=== PATIENT | female | born 1940 | race Caucasian/White ===

== ENCOUNTER → 2018-03-26 14:10 | Outpatient (CLI) | payer MEDICARE, OTHER, SELFPAY ==
[2018-03-26 14:40] LABS: Add Manual Diff / Slide Review NO; Basophils Percent Auto 0.6 % (0-2); Eosinophils Percent Auto 4.7 % (2-4); Hemoglobin 13.6 g/dL (12.0-16.0); Lymphocytes Percent Auto 27.9 % (25-40); Mean Corpuscular HGB Conc 33.1 % (30-36); Mean Corpuscular Hemoglobin 29.3 PG (26-34); Mean Corpuscular Volume 88.4 fL (80-100); Monocytes Percent Auto 7.2 % (3-14); Neutrophils Absolute Auto 4600 /uL (3000-5900); Neutrophils Percent Auto 59.6 % (50-75); Platelet Count 237 X10^3/uL (150-400); Red Blood Cell Count 4.64 X10^6/uL (4.0-5.2); Red Cell Distribution Width 16.3 % (11.6-14.8); White Blood Cell Count 7.7 X10^3/uL (4.5-11.0)
[2018-03-26 15:13] LABS: Prothrombin Time 10.6 SECONDS (10.1-12.7)
[2018-03-26 15:15] LABS: PTT Partial Thromboplastin Tim 27 SECONDS (26.4-36.2)
[2018-03-26 15:22] LABS: Blood Urea Nitrogen 22 mg/dL (7-17); Calcium 9.8 mg/dL (8.4-10.2); Carbon Dioxide 26 mmol/L (22-32); Chloride 106 mmol/L (98-107); Estimated Glomerular Filt Rate 53.9 mL/min (>60); Glucose 105 mg/dL (80-110); HEMOLYSIS < 15 (0-50); Potassium 4.8 mmol/L (3.4-5.1); Sodium 145 mmol/L (137-145)
== END ==
PROVIDERS: PCP Nurse Practitioner Primary Care; Visit Provider Physician Assistant
DX: M48.061 Spinal stenosis, lumbar region without neurogenic claudication (principal)
CPT/HCPCS: 36415; 80048; 85025; 85610; 85730

== ENCOUNTER 2018-04-01 10:55 | Inpatient (IN) | payer MEDICARE, OTHER, SELFPAY ==
[2018-03-29 12:46] VITALS: BMI 39.5
[2018-04-01] VITALS (16 sets, daily range): BP systolic 108–190; BP diastolic 55–91; PULSE 52–70; RESP 12–18; TEMP 35.6–36.8; O2SAT 93–98; BMI 39.5
--- NOTE | 2018-04-01 | DI.RAD.S_ITS ---
PROCEDURE: XR LUMBAR SPINE 2-3V INDICATIONS: L5-S1 TLIF TECHNIQUE: 2 views of the lumbar spine were acquired. COMPARISON: [facility] Outside Film, RG, SPINE LUMB 2 OR 3VW, 08/17/2017, 14:13. FINDINGS: Bones: AP and lateral images were obtained intraoperatively documenting placement of a disc spacer at L5-S1 with posterior fixation including trans-peduncular screws and vertical connecting rods bilaterally at L5-S1 Soft tissues: No suspicious soft tissue calcifications. IMPRESSION: Intraoperative documentation of posterior discectomy and fixation L5-S1 Dictated by: James Gillespie M.D. on 04/01/2018 at 16:00 Approved by: James Gillespie M.D. on 04/01/2018 at 16:04
[2018-04-01] MEDS: SCOPOLAMINE 1 PATCH TOP (11:50)
[2018-04-01] MEDS: LACTATED RINGERS 1,000 ML 42 ML IV ×2 (11:50→15:02)
--- NOTE | 2018-04-01 13:25 | PM.PREOP ---
Pre-operative Note Interval Note Pre-op Check: Yes History & Physical Reviewed by Physician, Yes Exam Performed and Yes History & Physical exam performed today by Physician Changes: No
[2018-04-01] MEDS: CEFAZOLIN VIAL 3 GM in SODIUM CHLORIDE 0.9% 100 ML 200 ML IV (13:38)
--- NOTE | 2018-04-01 14:31 | SUR.OPER ---
Prone on spine table, head in foam head support, padded chest and pelvic supports, gel pad at knees, lower legs supported by pillows; nipples, genitalia and toes free of pressure, arms secured on foam padded arm boards at <90 degrees abduction. Tape over blanket at thigh secured to table.
[2018-04-01] MEDS: BUPIVACAINE 0.25% W/ EPI VIAL 50 ML INJ (14:43)
[2018-04-01] MEDS: BUPIVACAINE LIPOSOME 266 MG/20 ML VIAL INJ (14:43)
--- NOTE | 2018-04-01 16:08 | PM.OP.1 ---
Operative Date/Time/Diagnoses Date of procedure: 04/01/18 Time of procedure: 13:08 Pre-op diagnosis: 1. L4-5, L5-S1 spinal stenosis 2. L4-5, L5-S1 spondylosis with radiculopathy Post-op diagnosis: same Procedure & Clinicians Procedure: 1. L5-S1 Postero-lateral and posterior interbody fusion 2. L5-S1 interbody cage placement. 3. L5-S1 decompressive laminectomy with bilateral facetecomies 4. L5-S1 Posterior non-segmental instrumentation 5. L4-5 left hemilaminectomy 6. Alpha of bone marrow from iliac crest 7. Utilization of microsurgical technique and operating microscope Same procedure as scheduled: Yes Indications: Patient has been having chronic back pain and worsening lumbar radiculopathy. Patient failed multiple conservative management with worsening pain weakness and numbness in her lower extremity. Patient has been having difficulty performing activity of daily living. After discussing risks benefits of treatment options, patient elected proceed with surgery. Surgeon: Vandana Nava Gas Fitter Apprentice: Emily Staley'Brien Click Yes if Unassisted: No Anesthesia Type: General Operative Notes Closure Type: primary Specimen(s): none sent Implants & Drains: Globus revolve screws, Rise cages Applied: catheter Estimated Blood Loss (mL): 50 Blood products transfused: none Procedure in detail: Patient was seen in the preoperative area. Risks and benefits of the surgery was discussed with the patient. Informed consent was obtained from the patient and placed in the chart. Surgical site was marked. Patient was taken to the operative room. General anesthesia was administered. Prophylactic antibiotic was given to the patient less than 30 min before the incision was made. Patient was placed into a prone position on the Deion table. Patient's back was then prepped and draped in the sterile fashion. Time-out was performed at this time. Using AP and lateral C-arm imaging the interval between L4-5 L5-S1 was identified and marked on patient's back. A 2 inch incision 2 in from midline was made on the right side first. The fascia was incised in line with skin incision. Globus MARS retractors was placed inside the incision and docked onto the L5 lamina. Using microsurgical technique and operating microscope, a L5 laminectomy and L5-S1 facetectomy was performed using a Kerrison rongeur. The disc space at L5-S1 was identified. And a total diskectomy was performed at L5-S1 level. The endplates were decorticated using a rasp and shaver. The total diskectomy and decortication was performed at L5-S1 level in order to to accomplish a L5-S1 fusion. The local bone from the laminectomy and facetectomy was saved for local bone grafting. After the total diskectomy and decortication was completed, Globus viacell bone graft material was combined with local bone that was harvested earlier. At this time, a separate skin is incision was made over the iliac crest. A Jamshidi needle was inserted into the iliac crest through a separate skin incision. 5 cc of bone marrow aspiration was obtained through the separate skin incision using a Jamshidi needle from the iliac crest. The bone marrow aspiration was combined with local bone and the via cell bone grafting material. The bone grafting material was placed into the L5-S1 interbody space along with a expandable cage. The cage was expanded to its maximum height using the torque limiting screwdriver. At this time the MARS retractor was redirected over the L4 lamina. Using microsurgical technique and operating microscope, a L4 heminectomy was performed using the Kerrison rongeur. The ligamentum flavum was also resected at the side of the hemilaminectomy for further decompression of the epidural space. At this time a mirror image incision was made on the right side. The fascia was incised in line with the skin incision. Globus MARS retractor was inserted and docked onto the L5-S1 posterolateral gutter. Using the power drill, posterior-lateral decortication was performed at L5-S1 level until bleeding cortical bone was identified. The remaining bone grafting material was placed into the L5-S1 posterior lateral gutter he order to accomplish posterolateral fusion at the L5-S1 level. Using the double C-arm technique, pedicle screws were placed into the L5 and S1 pedicles bilaterally. This was done by placing the Jamshidi needle into the pedicles, then placing the guidewires over the Jamshidi needle, and finally placing the cannulated screws over the guidewires bilaterally. After the pedicle screws were placed, 2 titanium rods was locked into the heads of the pedicle screws using locking caps and torque limiting screwdriver. After all the hardware was placed, and confirmed with AP and lateral C-arm imaging, the wound was then irrigated with sterile normal saline and packed with Ray-Faheem gauze for 3 min to accomplish hemostasis. After the gauze was removed the deep fascia was closed with #1 Vicryl suture. The subcutaneous layer was closed with 2-0 Vicryl. The skin was closed with skin louis. Patient tolerated the procedure well. There were no complications. Complications: none Condition: stable Disposition: PACU Plan for aftercare: Admit to inpatient hospital
--- NOTE | 2018-04-01 16:13 | P.OP_ITS ---
Operative Date/Time/Diagnoses Date of procedure: 04/01/18 Time of procedure: 13:08 Pre-op diagnosis: 1. L4-5, L5-S1 spinal stenosis 2. L4-5, L5-S1 spondylosis with radiculopathy Post-op diagnosis: same Procedure & Clinicians Procedure: 1. L5-S1 Postero-lateral and posterior interbody fusion 2. L5-S1 interbody cage placement. 3. L5-S1 decompressive laminectomy with bilateral facetecomies 4. L5-S1 Posterior non-segmental instrumentation 5. L4-5 left hemilaminectomy 6. [place] of bone marrow from iliac crest 7. Utilization of microsurgical technique and operating microscope Same procedure as scheduled: Yes Indications: Patient has been having chronic back pain and worsening lumbar radiculopathy. Patient failed multiple conservative management with worsening pain weakness and numbness in her lower extremity. Patient has been having difficulty performing activity of daily living. After discussing risks benefits of treatment options, patient elected proceed with surgery. Surgeon: Vandana Nava Load Checker: Emily Staley'Brien Click Yes if Unassisted: No Anesthesia Type: General Operative Notes Closure Type: primary Specimen(s): none sent Implants & Drains: Globus revolve screws, Rise cages Applied: catheter Estimated Blood Loss (mL): 50 Blood products transfused: none Procedure in detail: Patient was seen in the preoperative area. Risks and benefits of the surgery was discussed with the patient. Informed consent was obtained from the patient and placed in the chart. Surgical site was marked. Patient was taken to the operative room. General anesthesia was administered. Prophylactic antibiotic was given to the patient less than 30 min before the incision was made. Patient was placed into a prone position on the Deion table. Patient's back was then prepped and draped in the sterile fashion. Time- out was performed at this time. Using AP and lateral C-arm imaging the interval between L4-5 L5-S1 was identified and marked on patient's back. A 2 inch incision 2 in from midline was made on the right side first. The fascia was incised in line with skin incision. Globus MARS retractors was placed inside the incision and docked onto the L5 lamina. Using microsurgical technique and operating microscope, a L5 laminectomy and L5-S1 facetectomy was performed using a Kerrison rongeur. The disc space at L5-S1 was identified. And a total diskectomy was performed at L5- S1 level. The endplates were decorticated using a rasp and shaver. The total diskectomy and decortication was performed at L5-S1 level in order to to accomplish a L5-S1 fusion. The local bone from the laminectomy and facetectomy was saved for local bone grafting. After the total diskectomy and decortication was completed, Globus viacell bone graft material was combined with local bone that was harvested earlier. At this time, a separate skin is incision was made over the iliac crest. A Jamshidi needle was inserted into the iliac crest through a separate skin incision. 5 cc of bone marrow aspiration was obtained through the separate skin incision using a Jamshidi needle from the iliac crest. The bone marrow aspiration was combined with local bone and the via cell bone grafting material. The bone grafting material was placed into the L5-S1 interbody space along with a expandable cage. The cage was expanded to its maximum height using the torque limiting screwdriver. At this time the MARS retractor was redirected over the L4 lamina. Using microsurgical technique and operating microscope, a L4 heminectomy was performed using the Kerrison rongeur. The ligamentum flavum was also resected at the side of the hemilaminectomy for further decompression of the epidural space. At this time a mirror image incision was made on the right side. The fascia was incised in line with the skin incision. Globus MARS retractor was inserted and docked onto the L5-S1 posterolateral gutter. Using the power drill, posterior- lateral decortication was performed at L5-S1 level until bleeding cortical bone was identified. The remaining bone grafting material was placed into the L5-S1 posterior lateral gutter he order to accomplish posterolateral fusion at the L5- S1 level. Using the double C-arm technique, pedicle screws were placed into the L5 and S1 pedicles bilaterally. This was done by placing the Jamshidi needle into the pedicles, then placing the guidewires over the Jamshidi needle, and finally placing the cannulated screws over the guidewires bilaterally. After the pedicle screws were placed, 2 titanium rods was locked into the heads of the pedicle screws using locking caps and torque limiting screwdriver. After all the hardware was placed, and confirmed with AP and lateral C-arm imaging, the wound was then irrigated with sterile normal saline and packed with Ray-Faheem gauze for 3 min to accomplish hemostasis. After the gauze was removed the deep fascia was closed with #1 Vicryl suture. The subcutaneous layer was closed with 2-0 Vicryl. The skin was closed with skin louis. Patient tolerated the procedure well. There were no complications. Complications: none Condition: stable Disposition: PACU Plan for aftercare: Admit to inpatient hospital
[2018-04-01] MEDS: fentaNYL 100 MCG/2 ML INJ 50 MCG IV (16:47)
--- NOTE | 2018-04-01 17:51 | PC.NURSE ---
Addendum entered by Christa Butler R.N. 04/01/18 22:54: Patient sleeping between care, HR between 70-78. Asymptomatic, no SOB, dizziness, or chest pain. CMS to upper and lower extremities WNL. Calls appropriately for staff assistance. Original Note: Addendum entered by Christa Butler R.N. 04/01/18 19:43: Dr. Lin at bedside assessing patient. Will continue to monitor closely. Original Note: Addendum entered by Christa Butler R.N. 04/01/18 19:24: Afib on Telemetry monitoring. Patient without hx of Afib. Dr. Tran made aware, transferred her call to Dr. Lin for internal medicine consult. Patient awake and alert, no dizziness, SOB, or chest pain. Medicated with Zofran for nausea x1, IV. O2 sat 97% on 2L via NC. HR 64. Original Note: Addendum entered by Christa Butler R.N. 04/01/18 18:07: Lindsay shift note: 1720 Alert and oriented, family at bedside providing supportive care. Placed on O2 at 2L via NC due to desaturation 89-90%. 96% on 2L, no resp distress noted. SCD to feet place. FC draining clear yellow urine. Placed on left side with support of pillow. Island barrier dressing to mid lower back, CDI. Ica pack placed Original Note: Lindsay shift note: Phone call to Dr. Nava to obtain further orders, patient without pain medication order, IVF and Diet. Patient stable, pain 5/10 to lower back, unable to describe.
[2018-04-01] MEDS: OXYCODONE IR 5 MG TABLET 10 MG PO ×2 (19:16→23:48)
[2018-04-01] MEDS: SODIUM CHLORIDE 0.9% 1,000 ML 100 ML IV (19:20)
--- NOTE | 2018-04-01 19:21 | PM.PNPO.1 ---
Subjective Interval history: called for new a fib on tele. per report VSS Exam Vital Signs (past 8 hours): - 04/01/18 16:10 04/01/18 16:15 04/01/18 16:20 Temperature 98.2 F Pulse Rate 66 68 70 Respiratory Rate 12 12 12 Blood Pressure 119/60 108/58 L 117/61 Pulse Oximetry 97 98 98 04/01/18 16:25 04/01/18 16:30 04/01/18 16:35 Temperature Pulse Rate 70 68 64 Respiratory Rate 12 12 14 Blood Pressure 119/69 133/73 H 143/77 H Pulse Oximetry 96 97 97 04/01/18 16:40 04/01/18 16:45 04/01/18 16:58 Temperature 96.6 F L 96.6 F L Pulse Rate 64 60 65 Respiratory Rate 12 14 12 Blood Pressure 141/82 H 146/77 H 157/79 H Pulse Oximetry 94 93 96 04/01/18 17:10 04/01/18 17:40 04/01/18 18:16 Temperature 96.0 F L 96.1 F L 96.1 F L Pulse Rate 70 65 52 L Respiratory Rate 16 18 18 Blood Pressure 154/91 H 150/79 H 123/55 H Pulse Oximetry 95 93 96 Oxygen Delivery Method Nasal Cannula Oxygen Flow Rate 2 Assessment & Plan Post-op Postoperative Procedures Operation Date: 04/01/18 13:15 Actual Procedures Side Surgeon p L4-5 Left Hemilaminectomy Left Vandana Nava MD s L5-S1 TLIF w/ Posterior Instrumentation Vandana Nava MD 1. s/p PSF: no bending/lifting twisting. postop abx 2 doses ordered, pain control 2. new afib on tele--internal medicine consult ordered and communicated to Dr. Lin 3. DVGT prophy: bilateral SCDS Time Spent With Patient less than 15 minutes Quality VTE Deep Vein Thrombosis/Pulmonary Embolism Present on Admission: No
[2018-04-01] MEDS: HYDROMORPHONE 1 MG INJ 0.2 MG IV ×2 (19:47→21:56)
--- NOTE | 2018-04-01 19:51 | PM.CN ---
History of Present Illness Date Patient Seen: 04/01/18 Time Patient Seen: 19:51 Chief complaint: L4-5 left hemilaminectomy L5-S1 tlif Reason for consult: Atrial fibrillation Requesting provider: Faye Tran Narrative: Patient is a 77-year-old female status post elective lumbar fusion earlier today. The hospitalist service was consulted to see patient due to appear of atrial fibrillation on postop telemetry. Patient has history of coronary artery disease and cardiac stents. She has had 2 coronary stents with the last stent in 2008. She also has diabetes managed with oral medication and insulin. She sees Dr. Jovan Duran for her cardiology care and had preop clearance with him. Her EKG on 03/14/2018 showed normal sinus rhythm with nonspecific ST and T-wave abnormality. She denies any chest pains, shortness of breath, palpitations. Currently she is having some postop nausea and back pain as her only complaints. PFSH Medical History Asthma (Acute) CAD (coronary artery disease) (Acute) Chronic back pain (Acute) Chronic esophagitis (Acute) Depression (Acute) Diabetes (Acute) Dry skin (Acute) Edema (Acute) HTN (hypertension) (Acute) History of angina (Acute) Hyperlipidemia (Acute) Overactive bladder (Acute) Pericarditis (Acute) Pleurisy (Acute) Pneumonia (Acute) Positional vertigo (Acute) Precancerous skin lesion (Acute) Presence of bare metal stent in right coronary artery (Acute) Sciatic leg pain (Acute) Sleep apnea with use of continuous positive airway pressure (CPAP) (Acute) Surgical History Hx of appendectomy (Acute) Hx of cholecystectomy (Acute) Hx of dilation and curettage (Acute) Status post bilateral cataract extraction (Acute) Status post laser cataract surgery (Acute) Social History household members: spouse Smoking Status: Former smoker alcohol intake: current Meds Home Medications Medication Instructions Recorded Confirmed Type albuterol sulfate 2 puff INHALATION Q4-6H PRN 03/29/18 03/29/18 History aspirin 81 mg PO DAILY 03/29/18 04/01/18 History atorvastatin 40 mg PO BEDTIME 03/29/18 04/01/18 History carvedilol 12.5 mg PO BID 03/29/18 04/01/18 History fesoterodine [Toviaz] 8 mg PO DAILY 03/29/18 04/01/18 History fluticasone furoate [Arnuity 1 inh INHALATION DAILY 03/29/18 04/01/18 History Ellipta] furosemide 20 mg PO Q OTHER DAY 03/29/18 04/01/18 History hydrocodone-acetaminophen 1 - 2 tab PO Q4-6H PRN 03/29/18 03/29/18 History insulin glargine [Lantus U-100 45 unit SUB-Q BID 03/29/18 04/01/18 History Insulin] insulin lispro [Humalog KwikPen See Label Instructions .ROUTE 03/29/18 04/01/18 History Insulin] .COMPLEX losartan 25 mg PO DAILY 03/29/18 04/01/18 History metformin 1,500 mg PO DAILY 03/29/18 04/01/18 History mirabegron [Myrbetriq] 50 mg PO DAILY 03/29/18 03/29/18 History montelukast 10 mg PO QAM 03/29/18 04/01/18 History pantoprazole 40 mg PO DAILY 03/29/18 04/01/18 History peg 400-propylene glycol [Systane 1 drp EYE-BOTH DAILY 03/29/18 04/01/18 History Ultra] ranitidine HCl 150 mg PO BEDTIME 03/29/18 04/01/18 History sertraline 75 mg PO BEDTIME 03/29/18 04/01/18 History lorazepam 1 tab PO BEDTIME PRN 04/01/18 04/01/18 History magnesium 400 mg PO BID 04/01/18 04/01/18 History Allergies Allergy/AdvReac Type Severity Reaction Status Date / Time clopidogrel Allergy Severe Itching Verified 03/29/18 13:09 nickel Allergy Severe Rash Verified 03/29/18 13:09 oxybutynin Allergy Intermediate Itching Verified 03/29/18 13:09 iodine AdvReac Severe Delayed Verified 03/29/18 13:09 reaction - Nausea lisinopril AdvReac Severe Cough Verified 03/29/18 13:09 meperidine AdvReac Intermediate Nausea Verified 03/29/18 13:09 rosiglitazone AdvReac Intermediate Weight gain Verified 03/29/18 13:09 potassium AdvReac Mild Abdominal Verified 03/29/18 13:09 Pain Review of Systems Review of Systems All systems reviewed & are unremarkable except as noted in HPI and below Exam Vital Signs (past 8 hours): - 04/01/18 16:10 04/01/18 16:15 04/01/18 16:20 Temperature 98.2 F Pulse Rate 66 68 70 Respiratory Rate 12 12 12 Blood Pressure 119/60 108/58 L 117/61 Pulse Oximetry 97 98 98 04/01/18 16:25 04/01/18 16:30 04/01/18 16:35 Temperature Pulse Rate 70 68 64 Respiratory Rate 12 12 14 Blood Pressure 119/69 133/73 H 143/77 H Pulse Oximetry 96 97 97 04/01/18 16:40 04/01/18 16:45 04/01/18 16:58 Temperature 96.6 F L 96.6 F L Pulse Rate 64 60 65 Respiratory Rate 12 14 12 Blood Pressure 141/82 H 146/77 H 157/79 H Pulse Oximetry 94 93 96 04/01/18 17:10 04/01/18 17:40 04/01/18 18:16 Temperature 96.0 F L 96.1 F L 96.1 F L Pulse Rate 70 65 52 L Respiratory Rate 16 18 18 Blood Pressure 154/91 H 150/79 H 123/55 H Pulse Oximetry 95 93 96 04/01/18 19:10 Temperature 96.0 F L Pulse Rate 58 L Respiratory Rate 18 Blood Pressure 190/87 H Pulse Oximetry 95 Oxygen Delivery Method Nasal Cannula Oxygen Flow Rate 2 Narrative Exam Narrative: GENERAL: This is an alert well-nourished, well-developed patient, appears in mild degree of discomfort. HEAD: Atraumatic. Normocephalic. EYES: Pupils equal, round and reactive. Extraocular motions intact. No scleral icterus. No injection or drainage. OROPHARYNX: moist mucosa NECK: Trachea midline. No JVD or lymphadenopathy. CARDIOVASCULAR: Normal S1 and S2, irregularly irregular rhythm, no murmur RESPIRATORY: Clear to auscultation bilaterally. GASTROINTESTINAL: Abdomen nondistended, soft, non-tender. No hepato-splenomegaly, or palpable masses. EXTREMITIES: Bilateral mild ankle edema. NEUROLOGICAL: Alert, well oriented, speech is intact, normal bilateral upper and lower extremity strength, bilateral lower extremity light touch sensation intact SKIN: warm, dry, no rash Objective Imaging ECG: ECG: Sinus rhythm, first-degree AV block, intraventricular conduction delay Assessment & Plan Plan: Assessment/Plan Narrative: 1. Irregular heart rhythm. On EKG patient is in sinus rhythm with a significant 1st degree AV block. The P waves are quite difficult to see but she is definitely in a regular rhythm. The appearance of heart rhythm irregularity on telemetry is likely due to premature atrial contractions or sinus arrhythmia. Patient states she was started on magnesium by her e commerce merchandising coordinator for some kind of heart irregularity but never told she has atrial fibrillation. She is not having any chest discomfort or acute ST abnormality to suggest post cardiac ischemia. Her electrolytes were normal on preop blood work. I have restarted her magnesium replacement. I do not think the patient requires any further cardiac evaluation during this admission. Hospitalist Service will see her as needed.
[2018-04-01] MEDS: CARVEDILOL 12.5 MG TABLET PO (20:44)
[2018-04-01] MEDS: DOCUSATE 100 MG CAPSULE PO (20:44)
[2018-04-01] MEDS: ATORVASTATIN 20 MG TABLET 40 MG PO (20:45)
[2018-04-01] MEDS: MAGNESIUM OXIDE 400 MG TABLET PO (20:47)
[2018-04-01] MEDS: SERTRALINE 50 MG TABLET 75 MG PO (20:48)
[2018-04-01] MEDS: SENNOSIDES 8.6 MG TABLET 17.2 MG PO (20:48)
[2018-04-01] MEDS: CEFAZOLIN 2 GM/100 ML FROZ.PIGGY IV (21:45)
[2018-04-02] VITALS (10 sets, daily range): BP systolic 101–132; BP diastolic 41–69; PULSE 50–77; RESP 15–20; TEMP 36.3–37.1; O2SAT 91–98
[2018-04-02] MEDS: HYDROMORPHONE 1 MG INJ 0.2 MG IV (02:32)
[2018-04-02] MEDS: OXYCODONE IR 10 MG TABLET 15 MG PO (03:43)
--- NOTE | 2018-04-02 04:08 | PC.NURSE ---
Re-inforced dressing to lower back noted leaking small amount of blood. Original dressing moderate amount of shadow bloody drainage. Reported to Dr. Tran that drsg. was re-inforced. Also notified MD. that pt. did not have a good relief with 10 mg. of Percolone & 0.2 mg. of Dilaudid IVP. Orders received to increased Oxycodone to 5-15 mg. & Dilaudid to 0.5 mg. Will re-assess pt. & monitor.
[2018-04-02] MEDS: SODIUM CHLORIDE 0.9% 1,000 ML 100 ML IV (05:09)
[2018-04-02] MEDS: HYDROMORPHONE 0.5 MG INJ IV (05:20)
[2018-04-02 05:31] LABS: Hematocrit 36.9 % (36-46); Hemoglobin 12.2 g/dL (12.0-16.0)
[2018-04-02] MEDS: CEFAZOLIN 2 GM/100 ML FROZ.PIGGY IV (05:47)
[2018-04-02] MEDS: OXYCODONE IR 5 MG TABLET 15 MG PO (06:43)
[2018-04-02] MEDS: MONTELUKAST 10 MG TABLET PO (08:25)
[2018-04-02] MEDS: DOCUSATE 100 MG CAPSULE PO ×2 (08:25→20:18)
[2018-04-02] MEDS: DEXAMETHASONE 10 MG/ML VIAL IV (08:25)
[2018-04-02] MEDS: METFORMIN HCL 500 MG TABLET 1500 MG PO (08:26)
[2018-04-02] MEDS: MAGNESIUM OXIDE 400 MG TABLET PO ×2 (08:26→20:30)
[2018-04-02] MEDS: PANTOPRAZOLE 40 MG TABLET PO (08:26)
[2018-04-02] MEDS: HYDROMORPHONE 2 MG TABLET 4 MG PO ×4 (10:59→21:11)
--- NOTE | 2018-04-02 12:07 | PT.IIE ---
Current Diagnoses Other spondylosis with radiculopathy, lumbar region (04/01/18) Spinal stenosis, lumbar region without neurogenic claudication (04/01/18) Surgery Performed Operation Date: 04/01/18 13:15 Actual Procedures p L4-5 Left Hemilaminectomy(Left) - aVndana Nava MD s L5-S1 TLIF w/ Posterior Instrumentation - Vandana Nava MD Surgical History (Last Updated 03/29/18 @ 13:53 by Paulina Kovacs RN) Hx of appendectomy (Acute) Hx of cholecystectomy (Acute) Hx of dilation and curettage (Acute) Status post bilateral cataract extraction (Acute) Status post laser cataract surgery (Acute) Medical History (Last Updated 03/29/18 @ 13:59 by Paulina Kovacs RN) Asthma (Acute) CAD (coronary artery disease) (Acute) Chronic back pain (Acute) Chronic esophagitis (Acute) Depression (Acute) Diabetes (Acute) Dry skin (Acute) Edema (Acute) HTN (hypertension) (Acute) History of angina (Acute) Hyperlipidemia (Acute) Overactive bladder (Acute) Pericarditis (Acute) Pleurisy (Acute) Pneumonia (Acute) Positional vertigo (Acute) Precancerous skin lesion (Acute) Presence of bare metal stent in right coronary artery (Acute) Sciatic leg pain (Acute) Sleep apnea with use of continuous positive airway pressure (CPAP) (Acute) Physical Therapy Inpatient Evaluation/Re-Eval M1 PT/OT-IP Prior Functional Status Start: 04/02/18 12:24 Freq: NEEDED Status: Active Protocol: Document 04/02/18 12:07 [facility] (Rec: 04/02/18 12:34 [facility] [id number]) Medical Review Prior Functional Status Medical History Reviewed Yes Communication normal Mobility and Gait Independent with no AD. Would occasionally use handhold assist with for curbs. Activities of Daily Living and IADL's independent with showering, dressing etc. Social History Household Members spouse Living Arrangements House Number of Floors (Floors) Two Floors Number of Stairs To Enter/Railing? Bedroom/bathroom on the second floor (14 steps with B railings). 2 steps without hand rails to enter (short height). Home Environment High Toilet Tub/Shower Home Equipment Four Wheel Walker Bedside Commode Grab Bars Near Toilet Grab Bars In Shower Employment Status Retired Additional Social History Comment Pt lives with her in [place]. Her daughter, Gaye in the room as well during evaluation. Appears attentive and supportive. M2 PT-IP Current Condition Start: 04/02/18 12:24 Freq: NEEDED Status: Active Protocol: Document 04/02/18 12:07 [facility] (Rec: 04/02/18 12:34 [facility] [id number]) Physical Therapy Current Condition Current Condition Evaluation Date 04/02/18 Treatment Diagnosis s/p lumbar fusion Onset Date 04/01/18 Precautions Lumbar Precautions Log Roll No Twisting Limit Bending Lifting Restriction of 10 lbs Gait Belt above Incisional Area Other Precautions paz catheter Weight Bearing Status Weight Bearing Status Weight Bear as Tolerated M3 PT-IP Subjective Start: 04/02/18 12:24 Freq: NEEDED Status: Active Protocol: Document 04/02/18 12:07 [facility] (Rec: 04/02/18 12:34 [facility] [id number]) Subjective Physical Therapy Visit Type Type Initial Evaluation Visit Start Time 11:32 Visit Stop Time 12:07 Total Visit Minutes 35 Notes BP at rest: 124/58 mm Hg, sitting EOB: 123/51 mm Hg Number of PHYSICAL METALLURGIST Visits 0 Physical Therapy Visit Comments Patient Comments Pt agreeable to participation in PT eval this day. Reports she just had some pain medicine and it has really helped. Had a very rough night last night and didn't get much sleep. Therapy Pain Assessment Pain When Pain Assessed At Rest Pain Present Pain Present Pain Reported Location Back Intensity 2 Scale Used Numeric (1 - 10) Description Aching Radiating M4 PT-IP Mobility and Gait Start: 04/02/18 12:24 Freq: NEEDED Status: Active Protocol: Document 04/02/18 12:07 [facility] (Rec: 04/02/18 12:34 [facility] [id number]) PT-Bed Mobility Assessment Rolling Type of Rolling Roll to Left Level of Assist Contact Guard Assistance Supine to Sit Supine to Sit Minimal Assistance Scooting Scooting to Edge of Bed Minimal Assistance PT-Transfer Assessment Sit to and From Stand Sit to and from Stand Minimal Assistance Equipment Transfer Assistive Device Gait Belt Front Wheeled Walker Transfers Transfer Destination Bed Chair Transfer Ability Level of Assist Contact Guard Assistance Gait Assessment Gait Gait Assistance Required: Contact Guard Assist Distance (Feet) (feet) 15 Able to Maintain Weight Bearing Status Yes During Gait Assistive Devices Assistive Device Gait Belt Front Wheeled Walker Gait Deviations General Gait Pattern Within Normal Limits PT-Balance Assessment Sitting Balance and Reactions Static Sitting Balance Ability Normal Dynamic Sitting Balance Ability Normal Standing Balance and Reactions Static Standing Balance Ability Good Dynamic Standing Balance Ability Good M5 PT-IP Objective Assessments Start: 04/02/18 12:24 Freq: NEEDED Status: Active Protocol: Document 04/02/18 12:07 [facility] (Rec: 04/02/18 12:34 [facility] [id number]) Orientation Orientation/Cognition Level of Alertness Alert Orientation Name Age Birthday Month Date Year Day of Week Place Situation Language Function Ability No Deficits Noted Safety Awareness Understands Safety Issues Memory Description No Deficits Noted Gross Range of Motion Lower Extremity ROM Assessment Within Functional Limits Strength Lower Extremity Strength Assessment Within Functional Limits Sensation Assessment Sensation Gross Sensation WNL M6 PT-IP Treatment Start: 04/02/18 12:24 Freq: NEEDED Status: Active Protocol: Document 04/02/18 12:07 [facility] (Rec: 04/02/18 12:34 [facility] [id number]) Physical Therapy Treatment Education Education Provided Precautions Post-Op Packet Safety M7 PT-IP Assessment and Plan Start: 04/02/18 12:24 Freq: NEEDED Status: Active Protocol: Document 04/02/18 12:07 [facility] (Rec: 04/02/18 12:34 [facility] [id number]) PT Summary Assessment and Plan Potential Rehabilitation Potential Good Status of Condition at Evaluation Stable Summary Impairments Pain ROM Progress Towards Goals Progressing Toward Goals Assessment Summary Pt requires assist for proper log roll method and min A for supine to sit. She did have radiating L posterior leg pain when fully supine, but this improved with change of position. Reports very little pain with gait. Min A for sit to stand, CGA for gait. Pt will need to demonstrate ability to ascend/descend 14 steps for safe d/c home with support from her . Goals Bed Mobility Goal Standby Assistance Transfer Goal Standby Assistance Gait Goal Independent Gait Distance 50 Other Goals ascend/descend 14 steps with B hand rails Days to Meet Goals 3 Frequency of Treatment Frequency Of Treatment Twice a Day Treatment Plan Physical Therapy Treatment Plan Bed Mobility Training Transfer Training Gait Training Therapeutic Exercise Post Op Education Discharge Planning Other Recommendations and Next Treatment Continue with gait endurance, Focus transfer training, bed mobility Recommendations To Nursing Amount of Assist Needed 1 Person Assist Discharge Recommendations PT Discharge Recommendations Home with Assistance
--- NOTE | 2018-04-02 12:26 | CM.DANOTE ---
DCP: Case received, EMR reviewed and met with patient. Introduced self and role. DCP template completed with information currently available. Patient is a 77 year old female who admitted yesterday morning to the care of the hospitalist team. PCP: Dr. Johnson. Payer: confirmed: Medicare/ Commercial Insurance Patient came in for elective lumber fusion, L4-5 Left Hemilaminectomy. Prior to surgery, lives at home with spouse in [place], and has been independent. P: DCP to continue to plan and assess. Patient's goal is to go home, and will continue to work with physical therapy while in hospital. Claudia Calle RN/District Sales Coordinator
[2018-04-02] MEDS: INSULIN GLARGINE 100 UNIT/ML 3ML PEN 45 UNIT SUBCUT ×2 (12:34→20:23)
[2018-04-02] MEDS: INSULIN ASPART 100 UNIT/ML INSULN PEN SUBCUT ×3 (12:35→22:48)
--- NOTE | 2018-04-02 14:05 | PT.IPTN ---
Current Diagnoses Other spondylosis with radiculopathy, lumbar region (04/01/18) Spinal stenosis, lumbar region without neurogenic claudication (04/01/18) Surgery Performed Operation Date: 04/01/18 13:15 Actual Procedures p L4-5 Left Hemilaminectomy(Left) - Vandana Nava MD s L5-S1 TLIF w/ Posterior Instrumentation - Vandana Nava MD Physical Therapy Treatment Note M2 PT-IP Current Condition Start: 04/02/18 12:24 Freq: NEEDED Status: Active Protocol: Document 04/02/18 12:07 [facility] (Rec: 04/02/18 12:34 [facility] [id number]) Physical Therapy Current Condition Current Condition Evaluation Date 04/02/18 Treatment Diagnosis s/p lumbar fusion Onset Date 04/01/18 Precautions Lumbar Precautions Log Roll No Twisting Limit Bending Lifting Restriction of 10 lbs Gait Belt above Incisional Area Other Precautions paz catheter Weight Bearing Status Weight Bearing Status Weight Bear as Tolerated M3 PT-IP Subjective Start: 04/02/18 12:24 Freq: NEEDED Status: Active Protocol: Document 04/02/18 16:05 [facility] (Rec: 04/02/18 17:09 [facility] [email or web address]) Subjective Physical Therapy Visit Type Type Treatment Note Visit Start Time 15:41 Visit Stop Time 16:05 Total Visit Minutes 24 Physical Therapy Visit Comments Patient Comments Pt motivated to get up and work with PT this afternoon Therapy Pain Assessment Pain When Pain Assessed At Rest Pain Present Pain Present Pain Reported Location Back Intensity 3 Scale Used Numeric (1 - 10) Description Aching Pain Management Techniques Timing of Activity with Medications M4 PT-IP Mobility and Gait Start: 04/02/18 12:24 Freq: NEEDED Status: Active Protocol: Document 04/02/18 12:07 [facility] (Rec: 04/02/18 12:34 [facility] [id number]) PT-Bed Mobility Assessment Rolling Type of Rolling Roll to Left Level of Assist Contact Guard Assistance Supine to Sit Supine to Sit Minimal Assistance Scooting Scooting to Edge of Bed Minimal Assistance PT-Transfer Assessment Sit to and From Stand Sit to and from Stand Minimal Assistance Equipment Transfer Assistive Device Gait Belt Front Wheeled Walker Transfers Transfer Destination Bed Chair Transfer Ability Level of Assist Contact Guard Assistance Gait Assessment Gait Gait Assistance Required: Contact Guard Assist Distance (Feet) (feet) 15 Able to Maintain Weight Bearing Status Yes During Gait Assistive Devices Assistive Device Gait Belt Front Wheeled Walker Gait Deviations General Gait Pattern Within Normal Limits PT-Balance Assessment Sitting Balance and Reactions Static Sitting Balance Ability Normal Dynamic Sitting Balance Ability Normal Standing Balance and Reactions Static Standing Balance Ability Good Dynamic Standing Balance Ability Good M5 PT-IP Objective Assessments Start: 04/02/18 12:24 Freq: NEEDED Status: Active Protocol: Document 04/02/18 12:07 [facility] (Rec: 04/02/18 12:34 [facility] [id number]) Orientation Orientation/Cognition Level of Alertness Alert Orientation Name Age Birthday Month Date Year Day of Week Place Situation Language Function Ability No Deficits Noted Safety Awareness Understands Safety Issues Memory Description No Deficits Noted Gross Range of Motion Lower Extremity ROM Assessment Within Functional Limits Strength Lower Extremity Strength Assessment Within Functional Limits Sensation Assessment Sensation Gross Sensation WNL M6 PT-IP Treatment Start: 04/02/18 12:24 Freq: NEEDED Status: Active Protocol: Document 04/02/18 16:05 [facility] (Rec: 04/02/18 17:09 [facility] [id number]) Physical Therapy Treatment Education Education Provided Precautions Post-Op Packet Safety Other Treatments Other Treatment Performed Reviewed spinal precautions. Pt able to verbalize 2/3. Bed mobility with log roll to L, SBA. CGA for supine to sit. Cues for scooting forward in bed by leaning to either side to offweight hips. Sit to stand with CGA. Gait training x 136 feet with FWW, cues for improved posture, decreasing reliance on walker. M7 PT-IP Assessment and Plan Start: 04/02/18 12:24 Freq: NEEDED Status: Active Protocol: Document 04/02/18 16:05 [facility] (Rec: 04/02/18 17:09 [facility] [id number]) PT Summary Assessment and Plan Potential Rehabilitation Potential Good Status of Condition at Evaluation Stable Summary Impairments Pain ROM Bed Mobility Transfers Gait Activity Tolerance Progress Towards Goals Progressing Toward Goals Assessment Summary Pt demonstrates increased activity tolerance this afternoon with ability to ambulate 136 feet with FWW and CGA. She did report significant fatigue at end of session today. Will need to ascend/descend 14 steps safely prior to safe d/c home. Goals Bed Mobility Goal Standby Assistance Transfer Goal Standby Assistance Gait Goal Independent Gait Distance 50 Other Goals ascend/descend 14 steps with B hand rails Days to Meet Goals 3 Frequency of Treatment Frequency Of Treatment Twice a Day Treatment Plan Physical Therapy Treatment Plan Bed Mobility Training Transfer Training Gait Training Therapeutic Exercise Post Op Education Discharge Planning Other Recommendations and Next Treatment Continue with gait endurance, Focus transfer training, bed mobility Recommendations To Nursing Amount of Assist Needed 1 Person Assist Discharge Recommendations PT Discharge Recommendations Home with Assistance
[2018-04-02] MEDS: FLUTICASONE FUROATE 1 EACH INHALATION (15:25)
--- NOTE | 2018-04-02 15:41 | PM.PNPO.1 ---
Subjective Date Patient Seen: 04/02/18 Time Patient Seen: 07:42 Interval history: POD #1 status post lumbar fusion with Dr. Nava. Patient's pain is not been well controlled. She states she has difficulty moving as her pain is so severe. She was not on any pain medication prior to surgery. She is diabetic and her blood sugars have been under control. No previous issues taking steroids in the past. Exam Vital Signs (past 8 hours): - 04/02/18 11:20 04/02/18 15:26 04/02/18 15:37 Temperature 98.8 F 98.1 F Pulse Rate 69 72 77 Respiratory Rate 16 15 18 Blood Pressure 122/55 H 132/50 H Pulse Oximetry 98 95 92 Oxygen Delivery Method Room Air Oxygen Flow Rate 2 Narrative Exam Narrative: Patient lying in bed in no acute distress. She is alert and oriented x3. Her calves are soft, compressible, nontender bilaterally. Sensation intact to light touch throughout bilateral lower extremities. She is able to actively dorsiflex and plantar flex. Objective Labs Result Diagrams: 04/02/18 04:57 Labs: Laboratory Results - last 24 hr 04/02/18 04:57 Hgb 12.2 Hct 36.9 Assessment & Plan Post-op Postoperative Procedures Operation Date: 04/01/18 13:15 Actual Procedures Side Surgeon p L4-5 Left Hemilaminectomy Left Vandana Nava MD s L5-S1 TLIF w/ Posterior Instrumentation Vandana Nava MD POD #1 status post lumbar fusion with Dr. Nava. Patient will be started on 1 time dose of Decadron, and will continue to monitor her blood sugars. Her pain medication was changed to oral Dilaudid. She states she has had previous bladder issues in the past and Schwartz will remain in place until she is more active. She will work with physical therapy. No excessive bending, lifting, or twisting. Plan to discharge in next 1-2 days. Time Spent With Patient less than 15 minutes Quality VTE Deep Vein Thrombosis/Pulmonary Embolism Present on Admission: No
--- NOTE | 2018-04-02 17:08 | OT.IP.TRT ---
Current Diagnoses Other spondylosis with radiculopathy, lumbar region (04/01/18) Spinal stenosis, lumbar region without neurogenic claudication (04/01/18) Surgery Performed Operation Date: 04/01/18 13:15 Actual Procedures p L4-5 Left Hemilaminectomy(Left) - Vandana Nava MD s L5-S1 TLIF w/ Posterior Instrumentation - Vandana Nava MD Occupational Therapy Treatment Note M3 OT- IP Subjective and Pain Start: 04/02/18 17:07 Freq: Status: Active Protocol: Document 04/02/18 17:08 [facility] (Rec: 04/02/18 17:08 [facility] [id number]) OT- Subjective Occupational Therapy Visit Type Type Patient Unavailable Notes Pt just able to get dinner and nursing there giving pt medications. Therefore to see pt tomorrow for OT eval.
[2018-04-02] MEDS: SERTRALINE 50 MG TABLET 75 MG PO (20:18)
[2018-04-02] MEDS: SENNOSIDES 8.6 MG TABLET 17.2 MG PO (20:18)
[2018-04-02] MEDS: MAGNESIUM HYDROXIDE 30 ML UDC PO (20:18)
[2018-04-02] MEDS: ATORVASTATIN 20 MG TABLET 40 MG PO (20:18)
[2018-04-03] MEDS: LORazepam 0.5 MG TABLET PO (00:45)
[2018-04-03] MEDS: HYDROMORPHONE 2 MG TABLET 4 MG PO ×4 (00:45→15:52)
[2018-04-03] MEDS: SODIUM CHLORIDE 0.9% 1,000 ML 100 ML IV (00:58)
--- NOTE | 2018-04-03 01:05 | PC.NURSE ---
fluids were not running at start of shift on 04/02 at 2300. Patient doesn't have good PO intake right now and paz is putting out laurel urine. Discussed with patient and we decided we will hook her back up to the IV
[2018-04-03 08:00] VITALS: BP 123/64; PULSE 59; RESP 17; TEMP 36.8; O2SAT 97
[2018-04-03] MEDS: INSULIN ASPART 100 UNIT/ML INSULN PEN SUBCUT (09:09)
[2018-04-03] MEDS: INSULIN GLARGINE 100 UNIT/ML 3ML PEN 45 UNIT SUBCUT (09:10)
[2018-04-03] MEDS: FLUTICASONE FUROATE 1 EACH INHALATION (09:13)
[2018-04-03] MEDS: DOCUSATE 100 MG CAPSULE PO (09:14)
[2018-04-03 09:17] VITALS: PULSE 60; RESP 13; O2SAT 93
[2018-04-03] MEDS: MAGNESIUM OXIDE 400 MG TABLET PO (09:17)
[2018-04-03] MEDS: MONTELUKAST 10 MG TABLET PO (09:17)
[2018-04-03] MEDS: PANTOPRAZOLE 40 MG TABLET PO (09:17)
[2018-04-03] MEDS: METFORMIN HCL 500 MG TABLET 1500 MG PO (09:17)
[2018-04-03] MEDS: FUROSEMIDE 20 MG TABLET PO (09:26)
--- NOTE | 2018-04-03 09:54 | PT.IPTN ---
Current Diagnoses Other spondylosis with radiculopathy, lumbar region (04/01/18) Spinal stenosis, lumbar region without neurogenic claudication (04/01/18) Surgery Performed Operation Date: 04/01/18 13:15 Actual Procedures p L4-5 Left Hemilaminectomy(Left) - Vandana Nava MD s L5-S1 TLIF w/ Posterior Instrumentation - Vandana Nava MD Physical Therapy Treatment Note M2 PT-IP Current Condition Start: 04/02/18 12:24 Freq: NEEDED Status: Active Protocol: Document 04/02/18 12:07 [facility] (Rec: 04/02/18 12:34 [facility] [id number]) Physical Therapy Current Condition Current Condition Evaluation Date 04/02/18 Treatment Diagnosis s/p lumbar fusion Onset Date 04/01/18 Precautions Lumbar Precautions Log Roll No Twisting Limit Bending Lifting Restriction of 10 lbs Gait Belt above Incisional Area Other Precautions paz catheter Weight Bearing Status Weight Bearing Status Weight Bear as Tolerated M3 PT-IP Subjective Start: 04/02/18 12:24 Freq: NEEDED Status: Active Protocol: Document 04/03/18 09:54 [facility] (Rec: 04/03/18 10:51 [facility] [email or web address]) Subjective Physical Therapy Visit Type Type Treatment Note Visit Start Time 09:20 Visit Stop Time 09:54 Total Visit Minutes 34 Notes Resting BP: 121/53 mm Hg. Paz catheter still in place as pt was dehydrated yesterday evening. Number of SENIOR CONTROL SYSTEMS ENGINEER Visits 0 Physical Therapy Visit Comments Patient Comments Pt reports feeling a little fuzzy today. Agreeable to participate in stair training. Therapy Pain Assessment Pain When Pain Assessed At Rest Pain Present Pain Present Denied Pain M4 PT-IP Mobility and Gait Start: 04/02/18 12:24 Freq: NEEDED Status: Active Protocol: Document 04/02/18 12:07 [facility] (Rec: 04/02/18 12:34 [facility] [id number]) PT-Bed Mobility Assessment Rolling Type of Rolling Roll to Left Level of Assist Contact Guard Assistance Supine to Sit Supine to Sit Minimal Assistance Scooting Scooting to Edge of Bed Minimal Assistance PT-Transfer Assessment Sit to and From Stand Sit to and from Stand Minimal Assistance Equipment Transfer Assistive Device Gait Belt Front Wheeled Walker Transfers Transfer Destination Bed Chair Transfer Ability Level of Assist Contact Guard Assistance Gait Assessment Gait Gait Assistance Required: Contact Guard Assist Distance (Feet) (feet) 15 Able to Maintain Weight Bearing Status Yes During Gait Assistive Devices Assistive Device Gait Belt Front Wheeled Walker Gait Deviations General Gait Pattern Within Normal Limits PT-Balance Assessment Sitting Balance and Reactions Static Sitting Balance Ability Normal Dynamic Sitting Balance Ability Normal Standing Balance and Reactions Static Standing Balance Ability Good Dynamic Standing Balance Ability Good M5 PT-IP Objective Assessments Start: 04/02/18 12:24 Freq: NEEDED Status: Active Protocol: Document 04/02/18 12:07 [facility] (Rec: 04/02/18 12:34 [facility] [id number]) Orientation Orientation/Cognition Level of Alertness Alert Orientation Name Age Birthday Month Date Year Day of Week Place Situation Language Function Ability No Deficits Noted Safety Awareness Understands Safety Issues Memory Description No Deficits Noted Gross Range of Motion Lower Extremity ROM Assessment Within Functional Limits Strength Lower Extremity Strength Assessment Within Functional Limits Sensation Assessment Sensation Gross Sensation WNL M6 PT-IP Treatment Start: 04/02/18 12:24 Freq: NEEDED Status: Active Protocol: Document 04/03/18 09:54 [facility] (Rec: 04/03/18 10:51 [facility] [email or web address]) Physical Therapy Treatment Education Education Provided Precautions Post-Op Packet Safety Other Treatments Other Treatment Performed Practiced sit to stands with cues to push from surface she is on rather than walker. Short distance gait training and practice with precautions (ie no twisting when turning). Pt performed 3 sets of 3 stairs with B handrails with SBA (PT managing paz and IV pole), for a total of 9 steps this am. M7 PT-IP Assessment and Plan Start: 04/02/18 12:24 Freq: NEEDED Status: Active Protocol: Document 04/03/18 09:54 [facility] (Rec: 04/03/18 10:51 [facility] [email or web address]) PT Summary Assessment and Plan Potential Rehabilitation Potential Excellent Status of Condition at Evaluation Stable Summary Impairments Pain ROM Bed Mobility Transfers Gait Activity Tolerance Progress Towards Goals Progressing Toward Goals Assessment Summary Pt demonstrated ability to ascend/descend 9 steps with B railings this day. She will need additional stair training with and daughter to assure she can do the 2 short steps without a railing to enter her home. Goals Bed Mobility Goal Standby Assistance Transfer Goal Standby Assistance Gait Goal Independent Gait Distance 50 Other Goals ascend/descend 14 steps with B hand rails. ascend/descend 2 short steps with handhold assist Days to Meet Goals 3 Frequency of Treatment Frequency Of Treatment Twice a Day Treatment Plan Physical Therapy Treatment Plan Bed Mobility Training Transfer Training Gait Training Therapeutic Exercise Post Op Education Discharge Planning Other Recommendations and Next Treatment Continue with gait endurance, Focus transfer training, bed mobility Recommendations To Nursing Amount of Assist Needed 1 Person Assist Discharge Recommendations PT Discharge Recommendations Home with Assistance
--- NOTE | 2018-04-03 10:33 | OT.IP.TRT ---
Current Diagnoses Other spondylosis with radiculopathy, lumbar region (04/01/18) Spinal stenosis, lumbar region without neurogenic claudication (04/01/18) Surgery Performed Operation Date: 04/01/18 13:15 Actual Procedures p L4-5 Left Hemilaminectomy(Left) - Vandana Nava MD s L5-S1 TLIF w/ Posterior Instrumentation - Vandana Nava MD Occupational Therapy Treatment Note M3 OT- IP Subjective and Pain Start: 04/02/18 17:07 Freq: Status: Active Protocol: Document 04/03/18 10:30 [facility] (Rec: 04/03/18 10:32 [facility] [id number]) OT- Subjective Occupational Therapy Visit Type Visit Start Time 10:25 Visit Stop Time 10:30 Total Visit Minutes 5 Notes Pt states too tired and wanting to rest as was able to do stairs with PT earlier. Spoke to pt regarding use of AED for LB dressing needs and pt states will be assisting for all needs. Pt states has grab bar from tub/ shower and stool, and BSC.
--- NOTE | 2018-04-03 11:36 | PM.PNPO.1 ---
Subjective Date Patient Seen: 04/03/18 Time Patient Seen: 11:37 Interval history: Post op day 2. Patient is laying in bed comfortably with no signs of distress. Patient pain is well tolerated on Dilaudid. Patient states her and daughter is home to assist when discharged. Patient would like to go home today. Patient denies fevers, chills or distress. Exam Vital Signs (past 8 hours): - 04/03/18 08:00 04/03/18 09:17 Temperature 98.3 F Pulse Rate 59 L 60 Respiratory Rate 17 13 Blood Pressure 123/64 H Pulse Oximetry 97 93 Oxygen Delivery Method Room Air Oxygen Flow Rate 2 Narrative Exam Narrative: Patient is AOx3. Patient is well developed and in no acute distress. Lumbar dressing is CDI. Dorsalis pedis and radial pulses are symmetrical. Sensation to upper and lower extremities intact to light touch bilaterally. Muscle strength 5/5 in unhairing machine operator, dorsiflexion and plantarflexion bilaterally. Calfs are soft, compressible and non tender bilaterally. Objective Labs Result Diagrams: 04/02/18 04:57 Assessment & Plan Post-op Postoperative Procedures Operation Date: 04/01/18 13:15 Actual Procedures Side Surgeon p L4-5 Left Hemilaminectomy Left Vandana Nava MD s L5-S1 TLIF w/ Posterior Instrumentation Vandana Nava MD Plan: Patient is stable and well ambulating and is ready to be discharge upon voiding. Limit bending, twisting and lifting. Follow up in 7-10 days with [facility]. Postoperative day: 2 Postoperative status: doing well Postoperative plan: routine post-op care Time Spent With Patient less than 15 minutes Quality VTE Deep Vein Thrombosis/Pulmonary Embolism Present on Admission: No
[2018-04-03 11:45] VITALS: BP 132/61; PULSE 57; RESP 17; TEMP 36.6; O2SAT 97
--- NOTE | 2018-04-03 12:20 | P.DS_ITS ---
History of Present Illness Date Patient Seen: 04/03/18 Time Patient Seen: 12:12 Chief complaint: L4-5 left hemilaminectomy L5-S1 tlif Narrative: Patient has been having chronic back pain and worsening lumbar radiculopathy. Patient failed multiple conservative management with worsening pain weakness and numbness in her lower extremity. Patient has been having difficulty performing activity of daily living. Discharge Providers Date of admission: 04/01/18 10:55 Primary care physician: WINTER Recinos Consults: 04/01/18 18:11 Consult to Discharge Planning Routine Comment: Consult to Occupational Therapy Evaluate & Treat Comment: Physician Instructions: Evaluate and treat Consult to Physical Therapy Evaluate & Treat Comment: Physician Instructions: Evaluate and Treat 04/01/18 19:18 Consult to Internal Medicine Routine Comment: Consulting Provider: Chadwick Lin Reason for consultation: afib Has provider been notified: Yes Discharge provider: Joi Jackman PA-C Summary Discharge Diagnosis: Status post 1. L5-S1 Postero-lateral and posterior interbody fusion 2. L5-S1 interbody cage placement. 3. L5-S1 decompressive laminectomy with bilateral facetecomies 4. L5-S1 Posterior non-segmental instrumentation 5. L4-5 left hemilaminectomy 6. Townsend of bone marrow from iliac crest 7. Utilization of microsurgical technique and operating microscope Hospital Course: Patient admitting to hospital for the above mention procedure. Patient tolerated procedure well. Patient is ready to go home. Status at Discharge Functional status at discharge: uses cane/walker Overall status at discharge: patient is progressing back to baseline Time Spent with Patient Less than 30 minutes Exam Vital Signs (past 8 hours): - 04/03/18 08:00 04/03/18 09:17 Temperature 98.3 F Pulse Rate 59 L 60 Respiratory Rate 17 13 Blood Pressure 123/64 H Pulse Oximetry 97 93 Oxygen Delivery Method Room Air Oxygen Flow Rate 2 Objective Labs Result Diagrams: 04/02/18 04:57 Discharge Plan Discharge Plan Patient Disposition: Home, Self-Care Discharge comment: DC home today Discharge Med Rec/Prescriptions Prescriptions: New hydromorphone [Dilaudid] 2 mg tablet 2 mg PO Q4-6H PRN (Reason: pain) Qty: 40 RF: 0 Continue atorvastatin 40 mg Tablet 40 mg PO BEDTIME RF: 0 metformin 500 mg Tablet 1,500 mg PO DAILY RF: 0 carvedilol 12.5 mg Tablet 12.5 mg PO BID RF: 0 insulin glargine [Lantus U-100 Insulin] 100 unit/mL Solution 45 unit SUB-Q BID RF: 0 aspirin 81 mg Tablet,Delayed Release (Dr/Ec) 81 mg PO DAILY RF: 0 pantoprazole 40 mg Tablet,Delayed Release (Dr/Ec) 40 mg PO DAILY RF: 0 losartan 25 mg Tablet 25 mg PO DAILY RF: 0 montelukast 10 mg Tablet 10 mg PO QAM RF: 0 ranitidine HCl 150 mg Capsule 150 mg PO BEDTIME RF: 0 furosemide 20 mg Tablet 20 mg PO Q OTHER DAY RF: 0 albuterol sulfate 90 mcg/actuation Hfa Aerosol Inhaler 2 puff INHALATION Q4-6H PRN (Reason: Asthma) RF: 0 sertraline 50 mg Tablet 75 mg PO BEDTIME RF: 0 insulin lispro [Humalog KwikPen Insulin] 100 unit/mL Insulin Pen See Label Instructions .ROUTE .COMPLEX RF: 0 peg 400-propylene glycol [Systane Ultra] 0.4-0.3 % Drops 1 drp EYE-BOTH DAILY RF: 0 fesoterodine [Toviaz] 8 mg Tablet Extended Release 24 Hr 8 mg PO DAILY RF: 0 mirabegron [Myrbetriq] 25 mg Tablet Extended Release 24 Hr 50 mg PO DAILY RF: 0 fluticasone furoate [Arnuity Ellipta] 100 mcg/actuation Blister With Device 1 inh INHALATION DAILY RF: 0 lorazepam 1 tab PO BEDTIME PRN (Reason: Insomnia) RF: 0 magnesium 400 mg PO BID RF: 0 Discontinued hydrocodone-acetaminophen 5-325 mg Tablet 1 - 2 tab PO Q4-6H PRN (Reason: pain) RF: 0 Follow up/Referrals: Vandana Nava MD [Physician] - (F/U in clinic in 10-14 days.) Angella Johnson, MSN [Primary Care Provider] - Provider Discharge Instructions Diet: Carb-consistent/Diabetic Activity: Limit bending, twisting and lifting. Cold/Heat Therapy: Cold compress PRN Skin/Wound/Dressing Care Dressing: Keep clean and dry. Discharge Data Primary Care Provider: Angella Johnson Attending Provider: Vandana Nava Admit Date/Time: 04/01/18 10:55 Quality VTE Deep Vein Thrombosis/Pulmonary Embolism Present on Admission: No
--- NOTE | 2018-04-03 12:37 | PC.NURSE ---
Addendum entered by Lauren Castillo R.N. 04/03/18 15:33: Pts paz catheter taken out around 1230. Pt has to void per PA before she is discharged home. She voided about 15cc. Not happy that she couldnt go home. She does not drink a lot of ivf. Encouraged by her daughter and this rn to drink. OT worked with patient and she had a shower. Dressing changed to lower back. PT just voided about 50cc. Discharge paperwork done. Report passed on to ever RN, who will discharged patient. Pt was medicated with hydromorphone 4mg at 0700 and has not required anymore pain medication this shift. Offered around 1000 and pt refused at that time and was comfortable Original Note: Assess- Pt is doing better today. She had 4mg of po dilaudid for discomfort and that has held her pain control. Up and did stairs earlier this am with P.T. Paz catheter just taken out and pt had 150cc of dark yellow urine out. P.A. Pedrito states that she is going to discharge patient and encouraged her to drink more fluids. After she voids, she can be discharged home. Visiting with her family now.
--- NOTE | 2018-04-03 14:32 | CM.DPC ---
DCP Cont: Patient is to be discharged home today. Daughter was present, as well as . Physical therapy had some concerns regarding cognition, as far as safety. Had discussion with daughter if she would be able to stay with her mother overnight while she gets settled. sleeps upstairs, and patient sleeps downstairs. Has a walker. Stated that they communicate over phone. Daughter stated that she would call her sister, as she was supposed to come and stay with her tomorrow, to see if she can stay tonight. P: Patient is to discharge home today. Claudia Calle RN/Cloth Shrinking Tester
--- NOTE | 2018-04-03 14:48 | OT.IP.EVAL ---
Current Diagnoses Other spondylosis with radiculopathy, lumbar region (04/01/18) Spinal stenosis, lumbar region without neurogenic claudication (04/01/18) Surgery Performed Operation Date: 04/01/18 13:15 Actual Procedures p L4-5 Left Hemilaminectomy(Left) - Vandana Nava MD s L5-S1 TLIF w/ Posterior Instrumentation - Vandana Nava MD Past Medical History (Last Updated 03/29/18 @ 13:59 by Paulina Kovacs, RN) Asthma (Acute) CAD (coronary artery disease) (Acute) Chronic back pain (Acute) Chronic esophagitis (Acute) Depression (Acute) Diabetes (Acute) Dry skin (Acute) Edema (Acute) HTN (hypertension) (Acute) History of angina (Acute) Hyperlipidemia (Acute) Overactive bladder (Acute) Pericarditis (Acute) Pleurisy (Acute) Pneumonia (Acute) Positional vertigo (Acute) Precancerous skin lesion (Acute) Presence of bare metal stent in right coronary artery (Acute) Sciatic leg pain (Acute) Sleep apnea with use of continuous positive airway pressure (CPAP) (Acute) Surgical History (Last Updated 03/29/18 @ 13:53 by Paulina Kovacs RN) Hx of appendectomy (Acute) Hx of cholecystectomy (Acute) Hx of dilation and curettage (Acute) Status post bilateral cataract extraction (Acute) Status post laser cataract surgery (Acute) Occupational Therapy Inpatient Evaluation/Re-Eval M1 PT/OT-IP Prior Functional Status Start: 04/02/18 12:24 Freq: NEEDED Status: Active Protocol: Document 04/02/18 12:07 [facility] (Rec: 04/02/18 12:34 [facility] [id number]) Medical Review Prior Functional Status Medical History Reviewed Yes Communication normal Mobility and Gait Independent with no AD. Would occasionally use handhold assist with for curbs. Activities of Daily Living and IADL's independent with showering, dressing etc. Social History Household Members spouse Living Arrangements House Number of Floors (Floors) Two Floors Number of Stairs To Enter/Railing? Bedroom/bathroom on the second floor (14 steps with B railings). 2 steps without hand rails to enter (short height). Home Environment High Toilet Tub/Shower Home Equipment Four Wheel Walker Bedside Commode Grab Bars Near Toilet Grab Bars In Shower Employment Status Retired Additional Social History Comment Pt lives with her in [place]. Her daughter, Gaye in the room as well during evaluation. Appears attentive and supportive. M1 PT/OT-IP Prior Functional Status Start: 04/02/18 17:07 Freq: NEEDED Status: Active Protocol: Document 04/03/18 14:31 [facility] (Rec: 04/03/18 14:48 [facility] [id number]) Medical Review Prior Functional Status Medical History Reviewed Yes Communication normal Mobility and Gait Independent with no AD. Would occasionally use handhold assist with for curbs. Activities of Daily Living and IADL's independent with showering, dressing etc. Social History Household Members spouse Living Arrangements House Number of Stairs To Enter/Railing? Bedroom/bathroom on the second floor (14 steps with B railings). 2 steps without hand rails to enter (short height). Home Environment High Toilet Tub/Shower Home Equipment Four Wheel Walker Bedside Commode Grab Bars Near Toilet Grab Bars In Shower Employment Status Retired Additional Social History Comment Pt lives with her in [place]. Her daughter, Gaye in the room as well during evaluation. Appears attentive and supportive. M2 OT-IP Current Condition Start: 04/02/18 17:07 Freq: Status: Active Protocol: Document 04/03/18 14:31 [facility] (Rec: 04/03/18 14:48 [facility] [id number]) Occupational Therapy Current Condition Current Condition Evaluation Date 04/03/18 Treatment Diagnosis Lumbar stenosis Diagnosis Onset Date 04/01/18 Post Operative Precautions Lumbar Precautions Log Roll No Twisting Limit Bending Lifting Restriction of 10 lbs Gait Belt above Incisional Area Other Precautions paz catheter Weight Bearing Status Weight Bearing Status Weight Bear as Tolerated M3 OT- IP Subjective and Pain Start: 04/02/18 17:07 Freq: Status: Active Protocol: Document 04/03/18 14:31 [facility] (Rec: 04/03/18 14:48 [facility] [id number]) OT- Subjective Occupational Therapy Visit Type Type Initial Evaluation Visit Start Time 13:25 Visit Stop Time 14:25 Total Visit Minutes 60 Notes With pt' daughter encouragement able to do OT eval and agreeable to shower. Occupational Therapy Visit Comments Patient/Caregiver Goals To go home. OT Pain Assessment Pain When Pain Assessed At Rest Pain Present Pain Present Denied Pain M4 OT- IP ADL's Start: 08/14/18 17:07 Freq: Status: Active Protocol: Document 04/03/18 14:31 [facility] (Rec: 04/03/18 14:48 [facility] [id number]) OT ADL-Grooming General Evaluation Grooming Ability Standby Assistance Areas Needing Assistance Retrieving/Set-up of Grooming Items OT ADL-Dressing General Eval Upper Body Dressing Ability Minimal Assistance Lower Body Dressing Ability Moderate Assistance Comments OT Dressing Comments Able to practice AED with for LB dressing. and needing step by step commands and easily distracted and confused. OT ADL-Toileting General Evaluation Toileting Ability Standby Assistance OT ADL-Bathing Bathing Type Bathing Type Shower General Evaluation Bathing Ability Moderate Assistance Areas Needing Assistance Retrieving/Setting Up Items Wash/Dry Back Wash/Dry Perineal Area Wash/Dry Lower Extremities Devices Bathing Equipment Long Handled Sponge or Electrical Journeyman Held Shower Sprayer Shower Chair with Arms Grab Bars Comments OT Bathing Comments Needed to remind pt's for safety awareness and pt to sit while dressing. M6 OT- IP Functional Cognition Start: 04/02/18 17:07 Freq: Status: Active Protocol: Document 04/03/18 14:31 [facility] (Rec: 04/03/18 14:48 [facility] [id number]) Cognitive Factors Limiting Selfcare Function Cognitive Ability Level of Alertness Alert Patient Orientation Name Place Situation Attention Span Ability Capable of Focused Attention Unable to Sustain Attention Ability to Follow Commands Able to Follow One Step Commands Able to Follow One Step Commands with Increased Time Able to Follow One Step Commands with Repetition Memory Description Short Term Impaired Safety Awareness Decreased Recall of Precautions Decreased Ability to Apply Precautions Underestimates Need for Assistance Problem Solving Ability Needs Assist to Identify Solutions Executive Function Ability Unable to Filter Distractions Unable to Remember Details Cognitive Comments Cognitive Assessment Comments Pt decreased safety awareness, problem solving and would benefit from someone besides pt's for supervision for safety awareness and assist for needs. M7 OT- IP Mobility and Balance Start: 04/02/18 17:07 Freq: Status: Active Protocol: Document 04/03/18 14:31 [facility] (Rec: 04/03/18 14:48 [facility] [id number]) OT- Bed Mobility Assessment Rolling Type of Rolling Roll to Left Supine to Sit Supine to Sit Assist Moderate Assistance OT-Transfer Assessment Sit to and From Stand Sit to and from Stand Minimal Assistance Transfers Transfer Ability Minimal Assistance Technique Transfer Destination Chair Toilet Transfer Technique Stand Step Pivot Devices Transfer Assistive Devices Gait Belt Front Wheeled Walker M9 OT- IP Assessment and Plan Start: 04/02/18 17:07 Freq: Status: Active Protocol: Document 04/03/18 14:31 [facility] (Rec: 04/03/18 14:48 [facility] [id number]) OT Summary Assessment and Plan Potential Rehabilitation Potential Good Analytic Complexity at Evaluation Low Summary OT Impairments Pain Balance Functional Cognition Functional Mobility Dressing Toileting Bathing Shower Transfers Progress Towards Goals Slow Progress due to Pain Slow Progress due to Cognition Assessment Summary Pt going home today, pt's daughter states will call her sister to come and assist and be there to help right away. Goals Patient/Caregiver Education Goal Caregiver Independent Assisting Patient Days to Meet Goals 1 Frequency of Treatment Frequency Of Treatment Once a Day Treatment Plan OT Treatment Plan ADL Training Functional Cognition Training Functional Mobility Patient/Family Education Discharge Planning Discharge Recommendations OT Discharge Recommendations Home with 12/03 Assist Other Discharge Recommendations Shower chair.
--- NOTE | 2018-04-03 15:06 | PT.IPTN ---
Current Diagnoses Other spondylosis with radiculopathy, lumbar region (04/01/18) Spinal stenosis, lumbar region without neurogenic claudication (04/01/18) Surgery Performed Operation Date: 04/01/18 13:15 Actual Procedures p L4-5 Left Hemilaminectomy(Left) - Vandana Nava MD s L5-S1 TLIF w/ Posterior Instrumentation - Vandana Nava MD Physical Therapy Treatment Note M2 PT-IP Current Condition Start: 04/02/18 12:24 Freq: NEEDED Status: Active Protocol: Document 04/02/18 12:07 [facility] (Rec: 04/02/18 12:34 [facility] [id number]) Physical Therapy Current Condition Current Condition Evaluation Date 04/02/18 Treatment Diagnosis s/p lumbar fusion Onset Date 04/01/18 Precautions Lumbar Precautions Log Roll No Twisting Limit Bending Lifting Restriction of 10 lbs Gait Belt above Incisional Area Other Precautions paz catheter Weight Bearing Status Weight Bearing Status Weight Bear as Tolerated M3 PT-IP Subjective Start: 04/02/18 12:24 Freq: NEEDED Status: Active Protocol: Document 04/03/18 15:06 [facility] (Rec: 04/03/18 15:18 [facility] [id number]) Subjective Physical Therapy Visit Type Type Treatment Note Visit Start Time 14:46 Visit Stop Time 15:06 Total Visit Minutes 20 Notes Pt extremely fatigued from shower this afternoon, but willing to work with PT on additional stair training. Number of BASEBALL PITCHER Visits 0 Therapy Pain Assessment Pain Present Pain Present Pain Reported Location Back Intensity 4 Scale Used Numeric (1 - 10) Description Aching M4 PT-IP Mobility and Gait Start: 04/02/18 12:24 Freq: NEEDED Status: Active Protocol: Document 04/02/18 12:07 [facility] (Rec: 04/02/18 12:34 [facility] [id number]) PT-Bed Mobility Assessment Rolling Type of Rolling Roll to Left Level of Assist Contact Guard Assistance Supine to Sit Supine to Sit Minimal Assistance Scooting Scooting to Edge of Bed Minimal Assistance PT-Transfer Assessment Sit to and From Stand Sit to and from Stand Minimal Assistance Equipment Transfer Assistive Device Gait Belt Front Wheeled Walker Transfers Transfer Destination Bed Chair Transfer Ability Level of Assist Contact Guard Assistance Gait Assessment Gait Gait Assistance Required: Contact Guard Assist Distance (Feet) (feet) 15 Able to Maintain Weight Bearing Status Yes During Gait Assistive Devices Assistive Device Gait Belt Front Wheeled Walker Gait Deviations General Gait Pattern Within Normal Limits PT-Balance Assessment Sitting Balance and Reactions Static Sitting Balance Ability Normal Dynamic Sitting Balance Ability Normal Standing Balance and Reactions Static Standing Balance Ability Good Dynamic Standing Balance Ability Good M5 PT-IP Objective Assessments Start: 04/02/18 12:24 Freq: NEEDED Status: Active Protocol: Document 04/02/18 12:07 [facility] (Rec: 04/02/18 12:34 [facility] [id number]) Orientation Orientation/Cognition Level of Alertness Alert Orientation Name Age Birthday Month Date Year Day of Week Place Situation Language Function Ability No Deficits Noted Safety Awareness Understands Safety Issues Memory Description No Deficits Noted Gross Range of Motion Lower Extremity ROM Assessment Within Functional Limits Strength Lower Extremity Strength Assessment Within Functional Limits Sensation Assessment Sensation Gross Sensation WNL M6 PT-IP Treatment Start: 04/02/18 12:24 Freq: NEEDED Status: Active Protocol: Document 04/03/18 15:06 [facility] (Rec: 04/03/18 15:18 [facility] [id number]) Physical Therapy Treatment Education Education Provided Precautions Safety Other Treatments Other Treatment Performed Multiple sit to stands from w/ c with SBA. Pt performed 1 set of 2 steps with handhold assist from her . Did require reminders on precautions multiple times throughout session (after toileting) and during stand pivot transfers. M7 PT-IP Assessment and Plan Start: 04/02/18 12:24 Freq: NEEDED Status: Active Protocol: Document 04/03/18 15:06 [facility] (Rec: 04/03/18 15:18 [facility] [id number]) PT Summary Assessment and Plan Potential Rehabilitation Potential Good Status of Condition at Evaluation Stable Summary Impairments Pain Transfers Gait Progress Towards Goals Progressing Toward Goals Safe For Discharge Goals Met Assessment Summary Despite fatigue, pt demonstrates ability to ascend /descend 2 steps with handhold assist from her . Safe to d/c home when medically appropriate. Goals Bed Mobility Goal Standby Assistance Transfer Goal Standby Assistance Gait Goal Independent Gait Distance 50 Other Goals ascend/descend 14 steps with B hand rails. ascend/descend 2 short steps with handhold assist Days to Meet Goals 3 Frequency of Treatment Frequency Of Treatment Twice a Day Treatment Plan Physical Therapy Treatment Plan Bed Mobility Training Transfer Training Gait Training Therapeutic Exercise Post Op Education Discharge Planning Other Recommendations and Next Treatment Continue with gait endurance, Focus transfer training, bed mobility Recommendations To Nursing Amount of Assist Needed 1 Person Assist Discharge Recommendations PT Discharge Recommendations Home with Assistance
== END 2018-04-03 16:04 | disposition home or self-care (01) | DRG 455 ==
PROVIDERS: Orthopaedic Surgery Foot and Ankle Surgery; Admitting Provider Orthopaedic Surgery Orthopaedic Surgery of the Spine; PCP Nurse Practitioner Primary Care; Visit Provider Orthopaedic Surgery Orthopaedic Surgery of the Spine
PROC: 0SG30AJ Fusion of Lumbosacral Joint with Interbody Fusion Device, Posterior Approach, Anterior Column, Open Approach (ICD-10-PCS; principal; 2018-04-01 13:15)
PROC: 0SG30AJ Fusion of Lumbosacral Joint with Interbody Fusion Device, Posterior Approach, Anterior Column, Open Approach (ICD-10-PCS; 2018-04-01 13:15)
DX: M48.07 Spinal stenosis, lumbosacral region (principal); M48.061 Spinal stenosis, lumbar region without neurogenic claudication; M47.26 Other spondylosis with radiculopathy, lumbar region; G47.33 Obstructive sleep apnea (adult) (pediatric); E66.9 Obesity, unspecified; Z68.39 Body mass index [BMI] 39.0-39.9, adult; M79.7 Fibromyalgia; E11.9 Type 2 diabetes mellitus without complications; F32.9 Major depressive disorder, single episode, unspecified; Z95.5 Presence of coronary angioplasty implant and graft; I25.10 Atherosclerotic heart disease of native coronary artery without angina pectoris; J45.909 Unspecified asthma, uncomplicated; Z87.891 Personal history of nicotine dependence; Z79.4 Long term (current) use of insulin; K21.9 Gastro-esophageal reflux disease without esophagitis; M47.27 Other spondylosis with radiculopathy, lumbosacral region; G89.29 Other chronic pain; E78.5 Hyperlipidemia, unspecified; I44.0 Atrioventricular block, first degree; I49.8 Other specified cardiac arrhythmias
CPT/HCPCS: 36415; 72100; 76001; 82962; 85014; 85018; 93005; 93010; 94640; 94760; 97116; 97161; 97165; 97530; 97535; C1776; C9290; J0690; J1100; J1170; J2250; J2405; J2704; J3010

== ENCOUNTER → 2019-02-10 13:26 | Outpatient (CLI) | payer MEDICARE, OTHER, SELFPAY ==
[2018-04-01 13:36] VITALS: BMI 39.5
--- NOTE | 2019-02-10 | DI.ECHO.S_ITS ---
[place]---------+ [facility] +---------+ : : [address] : : : : [id number] : : : : Phone: [phone]+ Echocardiogram Report + + :Name: LISA MOLINA Study Date: 02/10/2019 Height: 68 in : :[facility] Weight: 260 lb : : Gender: Female BSA: 2.3 m2 : :: 1940 Age: 78 yrs BP: 116/60 mmHg: :Reason For Study: CAD : : Performed By: Ela Ventura : :Referring: JOVAN DURAN : + + Interpretation Summary The left ventricle is normal in size. There is mild concentric left ventricular hypertrophy. Left ventricular systolic function is low normal. The ejection fraction is estimated to be 50-55%. There is a mild dyssynchronous contraction pattern, consistent with a conduction abnormality. Diastolic parameters suggest a relaxation abnormality of the left ventricle, consistent with probable normal filling pressures. The right ventricle grossly appears normal in size with probable normal systolic function. The right ventricular systolic pressure is estimated to be at least 26 mmHg based on an estimated right atrial pressure of 3 mm Hg. The left atrium is borderline dilated. Right atrial size is normal. There is no significant valvular heart disease. The aortic root is normal size. Procedure: A two-dimensional transthoracic echocardiogram with color flow and Doppler was performed. The study quality was technically adequate. Comparison is made with the echocardiogram of 08-30-15. The patient was in normal sinus rhythm during the exam. Left Ventricle: The left ventricle is normal in size. There is mild concentric left ventricular hypertrophy. Left ventricular systolic function is low normal. The ejection fraction is estimated to be 50-55%. There are no obvious focal wall motion abnormalities noted but poor endocardial definition reduces the sensitivity for the detection of such. There is a mild dyssynchronous contraction pattern, consistent with a conduction abnormality. Diastolic parameters suggest a relaxation abnormality of the left ventricle, consistent with probable normal filling pressures. Right Ventricle: The right ventricle grossly appears normal in size with probable normal systolic function. Atria: The left atrium is borderline dilated. Right atrial size is normal. The interatrial septum is intact with no evidence for an atrial septal defect. Mitral Valve: The mitral valve is grossly normal. There is mild mitral regurgitation. Aortic Valve: The aortic valve is trileaflet. The aortic valve opens well. No aortic regurgitation is present. Tricuspid Valve: The tricuspid valve is normal in structure and function. There is trace tricuspid regurgitation. The right ventricular systolic pressure is estimated to be at least 26 mmHg based on an estimated right atrial pressure of 3 mm Hg. Pulmonic Valve: The pulmonic valve is not well seen, but is grossly normal. There is trace pulmonic regurgitation. There is no significant valvular heart disease. Great Vessels: The aortic root is normal size. The ascending aorta is normal in size. The aortic arch is at the upper limits of normal in size. The IVC is of normal diameter and collapses greater than 50% with a sniff. This suggests a low right atrial pressure of 3 mm Hg. Pericardium/ Pleura There is no pericardial effusion. There is no pleural effusion. MMode/2D Measurements & Calculations LVIDd: 4.9 cm Ao root diam: 3.1 cm LVIDs: 3.2 cm Aortic Jxn: 2.7 cm FS: 35.5 % asc Aorta Diam: 3.1 cm EPSS: 0.80 cm Ao Arch Diam (Prox Trans): 3.1 cm IVSd: 1.0 cm LVPWd: 1.3 cm LV diaz. diameter/BSA (cm/m^2): 2.2 LV sys. diameter/BSA (cm/m^2): 1.4 LA dimension: 4.1 cm RA long axis: 5.3 cm LA A2 area: 22.3 cm2 RA area: 21.5 cm2 LA A4 area: 24.2 cm2 RA vol: 73.8 ml LA length (vol): 6.0 cm RA : 32.3 ml/m2 LA vol: 75.7 ml IVC diam: 1.8 cm LA vol index: 33.1 ml/m2 RVDd major: 5.1 cm RVD1 (basal): 3.5 cm RVD2 (mid): 3.0 cm Doppler Measurements & Calculations Ao V2 max: 144.3 cm/sec MV E max kyle: 55.1 cm/sec Ao V2 mean: 98.7 cm/sec MV A max kyle: 76.9 cm/sec Ao max P.3 mmHg MV E/A: 0.72 Ao mean P.5 mmHg Med Peak E' Kyle: 5.5 cm/sec Ao V2 VTI: 31.2 cm E/E' med: 10.1 Lat Peak E' Kyle: 8.6 cm/sec E/E' lat: 6.4 E/e' average: 8.2 MV dec time: 0.35 sec MV P1/2t: 102.4 msec MR ERO: 0.08 cm2 TR max kyle: 238.1 cm/sec MV P1/2t max kyle: 55.4 cm/sec TR max P.7 mmHg MVA(P1/2t): 2.1 cm2 PA V2 max: 94.5 cm/sec PA V2 mean: 60.3 cm/sec PA mean P.7 mmHg PA Accel Time: 0.15 sec MR flow rate: 31.0 cm3/sec MR PISA radius: 0.36 cm Reading Physician:10:34 AM
== END ==
PROVIDERS: PCP Family Medicine; Visit Provider Internal Medicine Cardiovascular Disease
DX: I34.0 Nonrheumatic mitral (valve) insufficiency (principal); I25.10 Atherosclerotic heart disease of native coronary artery without angina pectoris
CPT/HCPCS: 93306